=== PATIENT | female | born 1955 | race Caucasian/White ===

== ENCOUNTER → 2016-06-07 | Outpatient (CLI) | payer OTHER ==
[~2016-06-07] MED LIST: LISI-360 PO; TAB-TAB PO
== END ==
LOC: CLAB 08:39
PROVIDERS: ATTEND Family Medicine
DX: E78.2 Mixed hyperlipidemia (principal); M79.1 Myalgia
CPT/HCPCS: 36415; 82085; 85652; 86140

== ENCOUNTER → 2016-12-19 | Outpatient (CLI) | payer OTHER ==
[2016-12-19 07:34] LABS: AUTOMATED NEUTROPHIL # 1.4 TH/MM3 (1.8-7.7); BASOPHIL % 0.7 % (0.0-2.0); EOSINOPHIL # 0.1 TH/MM3 (0-0.4); EOSINOPHIL % 1.9 % (0.0-4.0); HEMATOCRIT 38.9 % (35.0-46.0); HEMO FLAGS DIFF FINAL; LYMPH % 57.5 % (9.0-44.0); LYMPHOCYTE # 2.4 TH/MM3 (1.0-4.8); MEAN CELL VOLUME 84.9 FL (80.0-100.0); MEAN CORPUSCULAR HEMOGLOBIN 28.8 PG (27.0-34.0); MONO % 6.9 % (0.0-8.0); PLATELET COUNT 198 TH/MM3 (150-450); RED BLOOD COUNT 4.58 MIL/MM3 (4.00-5.30); RED CELL DISTRIBUTION WIDTH 13.9 % (11.6-17.2); WHITE BLOOD COUNT 4.2 TH/MM3 (4.0-11.0)
[2016-12-19 08:03] LABS: ALKALINE PHOSPHATASE 55 U/L (45-117); ALT (GPT) 26 U/L (10-53); ANION GAP 6 MEQ/L (5-15); AST (GOT) 16 U/L (15-37); BICARBONATE 27.7 MEQ/L (21.0-32.0); BLOOD UREA NITROGEN 13 MG/DL (7-18); CHLORIDE 105 MEQ/L (98-107); GLOMERULAR FILTRATION RATE 98 ML/MIN (>89); GLUCOSE,FASTING 94 MG/DL (74-99); HDL CHOLESTEROL 32.7 MG/DL (40.0-60.0); LDL CHOLESTEROL 170 MG/DL (0-99); POTASSIUM 3.8 MEQ/L (3.5-5.1); SODIUM (NA) 139 MEQ/L (136-145); TOTAL BILIRUBIN ADULT 0.2 MG/DL (0.2-1.0)
== END ==
LOC: CLAB 07:10
PROVIDERS: ATTEND Family Medicine
DX: E78.2 Mixed hyperlipidemia (principal); I10 Essential (primary) hypertension; M17.0 Bilateral primary osteoarthritis of knee; M85.80 Other specified disorders of bone density and structure, unspecified site; Z68.28 Body mass index [BMI] 28.0-28.9, adult
CPT/HCPCS: 36415; 80053; 80061; 85025

== ENCOUNTER 2017-02-06 15:50 | Emergency (ER) | payer OTHER ==
[~2017-02-06] VITALS: Ht 157.5 cm; Wt 72.0 kg
[2017-02-06 15:53] VITALS: BP 185/84; PULSE 63; RESP 17; TEMP 98.3; O2SAT 98
[2017-02-06] MEDS ORDERED: LISI10TA3 PO (16:18)
--- NOTE | 2017-02-06 17:15 | PD ---
HPI Chief Complaint: Flank/Kidney Pain Time Seen by Provider: 16:45 Travel History International Travel<30 days: No Contact w/Intl Traveler<30days: No Traveled to known affect area: No History of Present Illness HPI This is a 61-year-old female who presents to the emergency department with right sided flank pain that's been going on for 2 weeks, constant, moderate severity, worse with deep breaths and worse with movement with no associated nausea, vomiting, fevers or chills. She's never had pain like this before. She denies any abdominal pain. She hasn't noticed a rash. PFSH Past Medical History Blood Disorders: No Cancer: No Cardiovascular Problems: No High Cholesterol: Yes Diabetes: No Diminished Hearing: No Genitourinary: No Hepatitis: No Hiatal Hernia: No Hypertension: Yes Immune Disorder: No Neurologic: No Psychiatric: No Reproductive: No Respiratory: No Thyroid Disease: No Menopausal: Yes Past Surgical History Pacemaker: No Other Surgery: Yes (HAND SURGERY) Social History Alcohol Use: No Tobacco Use: No Substance Use: No Allergies-Medications (Allergen,Severity, Reaction): Coded Allergies: No Known Allergies (Verified , 01/06/12) Reported Meds & Prescriptions Reported Meds & Active Scripts Active Reported Lisinopril 10 Mg Tab 10 Mg PO DAILY Review of Systems Except as stated in HPI: all other systems reviewed are Neg Physical Exam Narrative GENERAL:Well appearing, no acute distress SKIN: Focused skin assessment warm and dry. HEAD: Atraumatic. Normocephalic. EYES: Pupils equal and round. No injection or drainage. ENT: Moist mucous membranes NECK: Trachea midline. CARDIOVASCULAR: Regular rate and rhythm. No murmur appreciated. RESPIRATORY: Clear to auscultation. Breath sounds equal bilaterally. GASTROINTESTINAL: Abdomen soft, tender to palpation in the right upper quadrant and epigastrium with no rebound or guarding. : Right CVA tenderness. MUSCULOSKELETAL: No obvious deformities. NEUROLOGICAL: Awake and alert. No obvious cranial nerve deficits. Moving all extremities. PSYCHIATRIC: Appropriate mood and affect; insight and judgment normal. Data Data Last Documented VS Vital Signs Date Time Temp Pulse Resp B/P (MAP) Pulse Ox O2 Delivery O2 Flow Rate FiO2 02/06/17 15:53 98.3 63 17 185/84 (117) 98 Room Air MDM Medical Decision Making Medical Screen Exam Complete: Yes Emergency Medical Condition: Yes Interpretation(s) Afebrile, hypertensive Differential Diagnosis Cholelithiasis, cholecystitis, pyelonephritis, nephrolithiasis, pulmonary embolism, shingles Narrative Course This is a 61-year-old female who presents to the emergency department with right sided flank pain that's been going on for 2 weeks. She doesn't have many constitutional symptoms but does report some pain when she takes a deep breath. She has no rash on exam. Plan for CT abdomen and pelvis to exclude kidney stone. Labs will be obtained. D-dimer will be obtained as well. If elevated I think the patient should have a CT pulmonary angiogram. Patient will be dispositioned by oncoming provider. Misa Delvalle MD Feb 06, 2017 17:15
[2017-02-06] MEDS ORDERED: SODIUM CHLOR 0.9% 1000 ML INJ 1,000 ML IV SCH (17:16)
[2017-02-06] MEDS ORDERED: KETOROLAC TROMETHAMINE 30 MG/ML (IVP) VIAL IVP ONE (17:30)
[2017-02-06] MEDS ORDERED: SODIUM CHLORIDE 0.9% FLUSH 10 ML FLUSH IV FLUSH PRN (17:30)
[2017-02-06 17:42] VITALS: O2SAT 98
[2017-02-06 18:07] LABS: AUTOMATED NEUTROPHIL # 1.9 TH/MM3 (1.8-7.7); BASOPHIL % 0.8 % (0.0-2.0); EOSINOPHIL # 0.1 TH/MM3 (0-0.4); EOSINOPHIL % 1.8 % (0.0-4.0); HEMATOCRIT 40.3 % (35.0-46.0); HEMO FLAGS DIFF FINAL; LYMPH % 54.5 % (9.0-44.0); LYMPHOCYTE # 2.9 TH/MM3 (1.0-4.8); MEAN CELL VOLUME 86.3 FL (80.0-100.0); MEAN CORPUSCULAR HEMOGLOBIN 28.5 PG (27.0-34.0); MEAN CORPUSCULAR HGB CONC 33.1 % (32.0-36.0); NEUT % 36.9 % (16.0-70.0); PLATELET COUNT 240 TH/MM3 (150-450); RED BLOOD COUNT 4.67 MIL/MM3 (4.00-5.30); RED CELL DISTRIBUTION WIDTH 14.1 % (11.6-17.2); WHITE BLOOD COUNT 5.3 TH/MM3 (4.0-11.0)
[2017-02-06 18:15] LABS: BLOOD, URINE NEG (NEG); GLUCOSE,URINE NEG (NEG); KETONE, URINE NEG (NEG); NITRITE,URINE NEG (NEG); URINE COLOR COLORLESS (YELLW/STRAW)
[2017-02-06 18:16] LABS: CULTURE IF INDICATED CULT NOT INDICATED
[2017-02-06 18:26] LABS: ANION GAP 8 MEQ/L (5-15); AST (GOT) 20 U/L (15-37); BLOOD UREA NITROGEN 12 MG/DL (7-18); CHLORIDE 100 MEQ/L (98-107); GLOMERULAR FILTRATION RATE 104 ML/MIN (>89); POTASSIUM 3.4 MEQ/L (3.5-5.1); SODIUM (NA) 138 MEQ/L (136-145)
[2017-02-06 18:27] LABS: ALT (GPT) 25 U/L (10-53)
[2017-02-06 18:30] LABS: ALKALINE PHOSPHATASE 65 U/L (45-117); TOTAL BILIRUBIN ADULT 0.2 MG/DL (0.2-1.0)
--- NOTE | 2017-02-06 19:48 | RADRPT ---
EXAM DATE/TIME: 02/06/2017 18:29 [facility] COMPARISON: No previous studies available for comparison. INDICATIONS : Right flank pain for ten days. ORAL CONTRAST: No oral contrast ingested. RADIATION DOSE: 11.29 CTDIvol (mGy) MEDICAL HISTORY : Hypertension. SURGICAL HISTORY : None. ENCOUNTER: Initial ACUITY: 1 week PAIN SCALE: 4/10 LOCATION: Right flank TECHNIQUE: Renal colic protocol. Volumetric scanning of the abdomen and pelvis was performed. Using automated exposure control and adjustment of the mA and/or kV according to patient size, radiation dose was kep t as low as reasonably achievable to obtain optimal diagnostic quality images. DICOM format image da ta is available electronically for review and comparison. FINDINGS: No calcified renal stones on either side. Mildly prominent extrarenal pelvis bilaterally without angela dence of hydronephrosis. Both ureters are normal in dimension and no calcifications seen within eith er ureter. A calcification seen in the right flank (image #95) is located lateral to the ureter and probably represents a phlebolith. Urinary bladder margins are smooth. No calcifications within the lumen. Symmetric fullness in the adnexal region bilaterally. No evidence of free fluid. No calcified galls tones. The visualized portion of the liver, spleen, adrenal glands, pancreas, and bowel are unremark able. CONCLUSION: Negative renal colic CT. Jerry Walker MD on February 06, 2017 at 19:42 Board Certified Radiologist. This report was verified electronically.
[2017-02-06 20:02] VITALS: BP 139/90; PULSE 64; RESP 18; O2SAT 99
[2017-02-06] MEDS ORDERED: CYCL10TA PO (20:05)
[2017-02-06] MEDS ORDERED: NAPR500T2 PO (20:05)
--- NOTE | 2017-02-06 20:05 | PD ---
Data Data Last Documented VS Vital Signs Date Time Temp Pulse Resp B/P (MAP) Pulse Ox O2 Delivery O2 Flow Rate FiO2 02/06/17 17:42 98 Room Air 02/06/17 15:53 98.3 63 17 Orders Orders Complete Blood Count With Diff (02/06/17 17:16) Comprehensive Metabolic Panel (02/06/17 17:16) Lipase (02/06/17 17:16) Urinalysis - C+S If Indicated (02/06/17 17:16) Ct Abd/Pel W/O Iv Contrast (02/06/17 17:16) Iv Access Insert/Monitor (02/06/17 17:16) Ecg Monitoring (02/06/17 17:16) Oximetry (02/06/17 17:16) Sodium Chlor 0.9% 1000 Ml Inj (Ns 1000 M (02/06/17 17:16) Sodium Chloride 0.9% Flush (Ns Flush) (02/06/17 17:30) Ketorolac Inj (Toradol Inj) (02/06/17 17:30) D-Dimer (02/06/17 18:13) Labs Laboratory Tests Test 02/06/17 17:29 02/06/17 17:30 02/06/17 18:25 White Blood Count 5.3 TH/MM3 Red Blood Count 4.67 MIL/MM3 Hemoglobin 13.3 GM/DL Hematocrit 40.3 % Mean Corpuscular Volume 86.3 FL Mean Corpuscular Hemoglobin 28.5 PG Mean Corpuscular Hemoglobin Concent 33.1 % Red Cell Distribution Width 14.1 % Platelet Count 240 TH/MM3 Mean Platelet Volume 7.4 FL Neutrophils (%) (Auto) 36.9 % Lymphocytes (%) (Auto) 54.5 % Monocytes (%) (Auto) 6.0 % Eosinophils (%) (Auto) 1.8 % Basophils (%) (Auto) 0.8 % Neutrophils # (Auto) 1.9 TH/MM3 Lymphocytes # (Auto) 2.9 TH/MM3 Monocytes # (Auto) 0.3 TH/MM3 Eosinophils # (Auto) 0.1 TH/MM3 Basophils # (Auto) 0.0 TH/MM3 CBC Comment DIFF FINAL Differential Comment Urine Color COLORLESS Urine Turbidity CLEAR Urine pH 7.0 Urine Specific Binger 1.003 Urine Protein NEG mg/dL Urine Glucose (UA) NEG mg/dL Urine Ketones NEG mg/dL Urine Occult Blood NEG Urine Nitrite NEG Urine Bilirubin NEG Urine Urobilinogen LESS THAN 2.0 MG/DL Urine Leukocyte Esterase MOD Urine WBC 5 /hpf Blood Urea Nitrogen 12 MG/DL Creatinine 0.59 MG/DL Random Glucose 93 MG/DL Total Protein 8.0 GM/DL Albumin 3.9 GM/DL Calcium Level 9.4 MG/DL Alkaline Phosphatase 65 U/L Aspartate Amino Transf (AST/SGOT) 20 U/L Alanine Aminotransferase (ALT/SGPT) 25 U/L Total Bilirubin 0.2 MG/DL Sodium Level 138 MEQ/L Potassium Level 3.4 MEQ/L Chloride Level 100 MEQ/L Carbon Dioxide Level 30.0 MEQ/L Anion Gap 8 MEQ/L Estimat Glomerular Filtration Rate 104 ML/MIN Lipase 236 U/L D-Dimer Quantitative (PE/DVT) 0.46 MG/L FEU MDM Supervised Visit with MARIA L: No Narrative Course The patient was initially evaluated by the previous provider and signed out to me at the beginning of my shift pending labs, imaging studies, and disposition. See her note for further details. Briefly this is a 61-year-old female who is here for evaluation of 2 weeks of right flank pain. She has no red flags for low back pain. There are no rashes on exam. Pain is worse with movements as well as inspiration. Vital signs show slight elevated blood pressure 185/84, otherwise unremarkable. CBC is remarkable for lymphocytosis of 54.5%. Chart review shows that the patient has had a slight lymphocytosis in the past. Both patient and the patient's daughter were made aware of this finding and advised follow-up with her primary care physician regarding it. CMP is essentially unremarkable. Lipase is 236. D-dimer is negative at 0.46. UA shows moderate leukocyte esterase, 5 WBCs, negative nitrites. Urine culture ordered. CT Abd/Pelvis: FINDINGS: No calcified renal stones on either side. Mildly prominent extrarenal pelvis bilaterally without evidence of hydronephrosis. Both ureters are normal in dimension and no calcifications seen within either ureter. A calcification seen in the right flank (image #95) is located lateral to the ureter and probably represents a phlebolith. Urinary bladder margins are smooth. No calcifications within the lumen. Symmetric fullness in the adnexal region bilaterally. No evidence of free fluid. No calcified gallstones. The visualized portion of the liver, spleen, adrenal glands, pancreas, and bowel are unremarkable. CONCLUSION: Negative renal colic CT. Both the patient and the patient's daughter were made aware of all findings. Patient is resting comfortably. Again she has no red flags for low back pain. Her symptoms have been going on for 2 weeks. They seem more musculoskeletal in nature to me. She reports significant improvement in symptoms after IV Toradol. This point the patient is stable for discharge home with further workup as an outpatient with her primary care physician this week. I'll give her prescription for muscle relaxant and naproxen. She was informed on when to return to the emergency department. She verbalizes understanding and agreement with plan. Diagnosis Primary Impression: Right flank pain Additional Impression: Lymphocytosis Referrals: Primary Care Physician 3 days Additional Instruction: Follow-up with your primary care physician this week. Return to the emergency department for worsening symptoms or any other concerns. Scripts Cyclobenzaprine (Flexeril) 10 Mg Tab 10 MG PO TID for Muscle Spasm, #15 TAB 0 Refills Prov: Ted Verduzco MD 02/06/17 Naproxen (Naproxen) 500 Mg Tab 500 MG PO BID for 10 Days, #20 TAB 0 Refills Prov: Ted Verduzco MD 02/06/17 Disposition: 01 DISCHARGE HOME Condition: Stable Ted Verduzco MD Feb 06, 2017 20:05
== END 2017-02-06 20:35 | disposition home or self-care (01) ==
LOC: NEPD 15:50
DX: R10.9 Unspecified abdominal pain (principal); D72.820 Lymphocytosis (symptomatic); E78.00 Pure hypercholesterolemia, unspecified; I10 Essential (primary) hypertension; Z79.899 Other long term (current) drug therapy
CPT/HCPCS: 74176; 80053; 81001; 83690; 85025; 85379; 96361; 96374; 99285; J1885; J7030